=== PATIENT | female | born 1960 | race Caucasian/White ===

== ENCOUNTER → 2023-12-07 11:30 | Outpatient (REF) | payer BC, SELFPAY | LOC: RAD 11:30 | PROVIDERS: ATTENDING PHYSICIAN Internal Medicine Gastroenterology; FAMILY PHYSICIAN Physician Assistant Medical | DX: K76.0 Fatty (change of) liver, not elsewhere classified (principal) | CPT/HCPCS: 76700 ==

== ENCOUNTER → 2024-02-18 09:14 | Outpatient (REF) | payer MEDICARE, BC, SELFPAY | LOC: PAVMRI 09:14 | PROVIDERS: ATTENDING PHYSICIAN Internal Medicine Gastroenterology; FAMILY PHYSICIAN Physician Assistant Medical | DX: K82.4 Cholesterolosis of gallbladder (principal) | CPT/HCPCS: 74183; A9575 ==

== ENCOUNTER 2024-03-31 22:20 | Observation (INO) | payer MEDICARE, BC, SELFPAY ==
[2024-03-31 16:44] VITALS: BP 150/90
--- NOTE | 2024-03-31 17:28 | ED.GENMED ---
History of Present Illness
General
Chief Complaint: Abdominal Symptoms
Source: patient
Exam Limitations: none
Time Seen by Provider: 03/31/24 17:27
Nursing documentation reviewed up to this point in time: agreed with
History of Present Illness
History of Present Illness:
63-year-old female multiple episodes of nonbloody diarrhea with nausea some vomiting since 4 AM apparently soiled herself in the waiting room, did have a sick contact in care of her grandchild, so also at a concert recently around a lot of people
Has had some low-grade fevers, no recent antibiotic use, no foreign travel no raw or undercooked foods
Past History
Past History
ED Past Medical History: Arrthythmia
ED Past Surgical History: None
Social History
Tobacco: Non-smoker
Alcohol: None
Drug: None
Personal:
Living: with family
Employment: Employed
Review of Systems
Review of Systems
All Other Systems: Not applicable
Constitutional: Reports fever and fatigue
EENT: Reports no symptoms
Respiratory: Reports no symptoms
Cardiac: Reports no symptoms
ABD/GI: Reports nausea, vomiting and diarrhea; Denies abdominal pain, constipated, bloody stools, black stools or anorexia
: Reports no symptoms
Phy Exam
Physical Exam
Physical Exam:
Physical Exam
General: no apparent distress, not acutely ill
Neck: Dry lips
Heart: s1/s2 regular rate and rhythm, no murmur. equal radial pulses.
Lungs: no acute respiratory distress. clear bilaterally
Abdomen: Soft, nontender
Neuro: alert and oriented. no focal neurological deficits
Skin: no rash
Psychiatric: well kept. interactive and cooperative
Extremities: no edema.
Course
Orders/Labs/Results
Orders:
Orders
03/31/24 17:27
0.9% Sodium Chloride 1000 ml [Nss] 1,000 ml IV BOLUS
Ondansetron Injectable [Zofran] 4 mg IV NOW STA
03/31/24 17:34
Complete Blood Count/With Diff Urgent
Comprehensive Metabolic Panel Urgent
03/31/24 17:58
Norovirus by PCR Urgent
MATEUSZ Source: Feces/Stool
Specimen Description:
Date Specimen was Collected: 03/31/24
Time Specimen was Collected: 20:18
Stool Culture Urgent
MATEUSZ Source: Feces/Stool
Specimen Description:
Date Specimen was Collected: 03/31/24
Time Specimen was Collected: 20:18
Loperamide [Imodium] 2 mg PO NOW STA
03/31/24 20:16
0.9% Sodium Chloride 1000 ml [Nss] 1,000 ml IV BOLUS
Loperamide [Imodium] 2 mg PO NOW STA
Abnormal Lab Results
03/31/24
17:34
RBC 5.49 H 10^6/uL
(4.20-5.40)
Hct 47.6 H %
(37.0-47.0)
MCHC 31.9 L g/dL
(33.0-37.0)
Absolute Neuts (auto) 8.5 H 10^3/uL
(1.4-6.5)
Absolute Lymphs (auto) 0.5 L 10^3/uL
(1.2-3.4)
Neutrophils % 91.6 H %
(42.2-75.2)
Lymphocytes % 5.0 L %
(20.5-51.1)
Chloride 108 H mmol/L
(98-107)
Carbon Dioxide 21 L mmol/L
(22-30)
Glucose 126 H mg/dl
(70-99)
03/31/24 17:34
03/31/24 17:34
Vital Signs
Initial and Last Documented VS:
Initial Vital Signs
Temp Pulse Resp BP Pulse Ox
98.5 F 119 20 150/90 97
03/31/24 16:44 03/31/24 16:44 03/31/24 16:44 03/31/24 16:44 03/31/24 16:44
Last Documented Vital Signs
Temp Pulse Resp BP Pulse Ox
98.5 F 78 20 133/76 99
03/31/24 16:44 03/31/24 19:07 03/31/24 16:44 03/31/24 19:07 03/31/24 19:07
MDM/Problems Addressed
Differential Diagnosis Includes:
Norovirus infectious diarrhea colitis enteritis dehydration
MDM/Problems Addressed:
Diarrhea nausea vomit
*Pulse Oximetry
Patient hypoxic: no
*Gaming Cage Worker Interpretation
Rate: normal
Interpretation: normal
Heart Rate: 98
Rhythm: sinus
*Critical Care Note
Total Time (30-74mins, 75-104mins- exclusive of procedures): Not Applicable
Update Note
Update Note:
Update suspect viral enteritis afebrile here, normal white count no blood in her stool will start saline hydration antiemetics Imodium see if we get her feeling better
830 update patient continues to have copious malodorous diarrhea almost incontinence, at this point I would believe it is beneficial to admit her to the hospital
ED Attending Note
-
Portions of this chart may have been created with voice recognition software.� Occasional wrong word or��sound alike� substitutions may have occurred due to the inherent limitations of voice recognition software.
Discharge Plan
Departure
Patient Disposition: Home (Routine Discharge)
Date of Disposition: 03/31/24
Time of Disposition: 20:30
Admit to: Med/Surg
Patient with high blood pressure during this ER visit?: No
Condition: Fair
Covid-19: Not Applicable
Discharge Problem:
Intractable diarrhea
Prescriptions:
No Action
multivitamin with folic acid [Tab-A-Wilton] 1 TABLET tablet
1 tab PO DAILY
omega-3 fatty acids 100 MG tablet,chewable
684 - 1,200 mg PO DAILY
Lactobacillus acidophilus [Probiotic] 1 EACH capsule
1 cap PO DAILY
rivaroxaban [Xarelto] 20 MG tablet
20 mg PO QPM Qty: 90 1RF
apixaban [Eliquis] 5 MG tablet
5 mg PO BID Qty: 60 0RF
Referrals:
Joan James PA [Family Provider] -
Interventions
Interventions:
*Risk Screen - Suicide Last Done: 03/31/24 16:46
*General Assessment Last Done: 03/31/24 16:46
*Neglect/Abuse Screening Last Done: 03/31/24 16:46
ED- Fall Risk Assessment Last Done: 03/31/24 18:39
BR-Uxvvpy-Svszwkmdji Assessment Last Done: 03/31/24 18:39
Discharge Date and Time
Print Language: UKRAINIAN
[2024-03-31] MEDS: NSS 1000 IV ×2 (17:34→20:25)
[2024-03-31 17:45] LABS: % Basophils 0.1 % (0-2); % Eosinophils 0.2 % (0-6); % Immature Granulocytes 0.2 % (0-0.5); % Monocytes 2.9 % (1.7-9.3); % Neutrophils 91.6 % (42.2-75.2); Absolute Lymphocytes 0.5 10^3/uL (1.2-3.4); Absolute Monocytes 0.3 10^3/uL (0.1-0.6); Absolute Neutrophils 8.5 10^3/uL (1.4-6.5); Hematocrit 47.6 % (37.0-47.0); Hemoglobin 15.2 g/dL (12.0-16.0); Mean Corp Hgb Conc. 31.9 g/dL (33.0-37.0); Mean Corpuscular Hgb 27.7 pg (27.0-31.0); Mean Corpuscular Volume 86.7 fL (81.0-99.0); Mean Platelet Volume 9.6 fL (7.4-10.4); Nucleated Red Blood Cells % 0 %; Platelet Count 202 10^3/uL (130-400); Red Blood Cell Count 5.49 10^6/uL (4.20-5.40); Red Cell Dist. Width 12.4 % (11.5-14.5); White Blood Cell Count 9.3 10^3/uL (4.8-10.8)
[2024-03-31] MEDS: ZOFRAN 4 MG IV (17:50)
[2024-03-31 18:06] LABS: ALT (SGPT) 28 U/L (0-35); AST (SGOT) 25 U/L (14-36); Albumin 4.2 g/dl (3.5-5.0); Alkaline Phosphatase 69 U/L (38-126); Blood Urea Nitrogen 16 mg/dl (7-17); Calcium 8.9 mg/dl (8.4-10.2); Carbon Dioxide 21 mmol/L (22-30); Chloride 108 mmol/L (98-107); Glucose 126 mg/dl (70-99); Sodium 136 mmol/L (135-145); Total Bilirubin 0.9 mg/dl (0.2-1.3); Total Protein 6.9 g/dl (6.3-8.2); eGFR > 60.00
[2024-03-31 18:12] LABS: Potassium 3.8 mmol/L (3.5-5.1)
[2024-03-31] MEDS: IMODIUM 2 MG PO ×2 (18:14→20:25)
[2024-03-31 19:07] VITALS: BP 133/76
--- NOTE | 2024-03-31 21:23 | HPS.HSE ---
Family Physician
-
Family Physician: Joan James
Chief Complaint
-
diarrheal illness
History of Present Illness
This is a 66-year-old female with history of paroxysmal atrial fibrillation on as needed rate control with propafenone and diltiazem who presents to the emergency department with approximately 1 day history of a diarrheal illness.
Patient reported contacts with 2 family members with diarrhea who appears to have improved in the last 2 to 3 days. However she stated that she started having loose stools yesterday morning at around 4 AM. She then developed very watery diarrhea
throughout the day today. Yesterday she had an episode of atrial fibrillation for which she terminated it with a dose of diltiazem and propafenone. She is a direct was 135 at that time. She reports a low-grade temp. She denies any nausea or
vomiting. She denies feeling dizzy or lightheaded. She has not been able to tolerate any p.o. at home due to continued diarrheal bowel movements. Patient denies any bloody stools.
In the emergency department she was afebrile, blood pressure was 133/76 with a pulse of 70. CBC was unremarkable. Electrolytes BUN/creatinine have been normal. Stool studies are pending
Medical History
Past Medical History
Past Medical History: Reports Arrhythmia (Proximal atrial fibrillation)
Past Surgical History: Reports None
Social History
Tobacco: Non-smoker
Alcohol: None
Drug: None
Personal:
Living: With Family
Employment: Employed
Family History
Family History: Not pertinent
Allergies / Home Medications
Allergies reflects when Allergies were last updated in [employer].
Home Medications with original date entered in [employer]
Allergy/Medication List:
Allergies
Allergy/AdvReac Type Severity Reaction Status Date / Time
No Known Allergies Allergy Verified 07/31/21 09:09
Home Medications
Lactobac no.2-Bifidobac no.1-S. thermo 112.5 billion cell capsule ([employer]inel[employer]) 1 cap PO DAILY 03/31/24
diltiazem HCl 120 mg capsule,24 hr,extended release 120 mg PO DAILYPRN PRN afib 03/31/24
esomeprazole magnesium 40 mg capsule,delayed release (Nexium) 40 mg PO DAILYPRN PRN reflux 03/31/24
omega-3 fatty acids-fish oil 684 mg-1,200 mg capsule,delayed release 1 cap PO DAILY 03/31/24
propafenone 150 mg tablet 150 mg PO DAILYPRN PRN afib, diltiazem ineffective 03/31/24
therapeutic multivitamin 1 tab PO DAILY 03/31/24
Review of Systems
-
History Source: Patient
Constitutional: Reports No Symptoms
EENT: Reports No Symptoms
Respiratory: Reports No Symptoms
Cardiac: Reports No Symptoms
Abdomen/GI: Reports Diarrhea
: Reports No Symptoms
Musculoskeletal: Reports No Symptoms
Skin: Reports No Symptoms
Neurological: Reports No Symptoms
Endocrine: Reports No Symptoms
Hematologic/Lymphatic: Reports No Symptoms
Psych: Reports No Symptoms
Physical Exam
Vital Signs
Vital Signs
Temp Pulse Resp BP Pulse Ox
98.5 F 78 20 133/76 99
03/31/24 16:44 03/31/24 19:07 03/31/24 16:44 03/31/24 19:07 03/31/24 19:07
Physical Exam
General: Well Developed and Well Nourished
HEENT: NormoCephalic, Anicteric, Moist mucous membranes and Atraumatic
Respiratory: Clear
Cardiac: S1/S2 and Regular Rhythm
Breast: Deferred by me
GI: Soft, Non Tender, Non Distended and Normal Bowel Sounds
Genito-urinary: Deferred by me
Musculoskeletal: No Clubbing, No Cyanosis and No Edema
Neuro: AO x 3
Hematologic/Lymphatic: No Lymphadenopathy
Psych: Calm
Laboratory Results
-
03/31/24 17:34
03/31/24 17:34
Laboratory Results
Total Bilirubin 0.9 mg/dl (0.2-1.3) 03/31/24 17:34
AST 25 U/L (14-36) 03/31/24 17:34
ALT 28 U/L (0-35) 03/31/24 17:34
Alkaline Phosphatase 69 U/L (38-126) 03/31/24 17:34
Data Reviewed
-
Lab Data: Labs Reviewed by me
Old Records: Reviewed
Impression/Plan
-
IMPRESSION:
63 y.o female with paroxysmal atrial fibrillation status post ablation and on as needed rate control presents with watery diarrhea for about 24 hours. She is generally well appearing with stable labs but unable to tolerate po or cope at home.
Suspect diarrhea secondary to viral enteritis.
PLAN:
1. Acute enteritis - well appearing and hemodynamically stable, at risk for triggering afib w/ dehydration.
- admit to obs, telemetry
- stool studies pending
- IV LR at 125 ml/hr for now
- immodium prn
- antiemetics and pain control
2. pAFIB - Patient on a prn protocol
- she takes diltiazem 60mg prn afib
- if not controlled she takes propafenone 450 mg prn
- if afib > 24 hours, she starts Xarelto
DVT PPX - lovenox sq
Code status - full code
[2024-04-01] MEDS: LR 1000 IV (01:06)
[2024-04-01 01:14] VITALS: BP 128/58
[2024-04-01 02:00] VITALS: BP 110/59
[2024-04-01 02:35] VITALS: BMI 35.5
[2024-04-01 04:00] VITALS: BP 109/72
[2024-04-01 06:03] LABS: Blood Urea Nitrogen 13 mg/dl (7-17); Calcium 8.1 mg/dl (8.4-10.2); Carbon Dioxide 23 mmol/L (22-30); Chloride 109 mmol/L (98-107); Estimated Creatinine Clearance 123 ml/min; Glucose 103 mg/dl (70-99); Magnesium 1.6 mg/dl (1.6-2.3); Potassium 3.8 mmol/L (3.5-5.1); Sodium 138 mmol/L (135-145); eGFR > 60.00
[2024-04-01 07:52] VITALS: BP 115/64
[2024-04-01 08:00] VITALS: BP 104/62
--- NOTE | 2024-04-01 08:42 | W.PN.HOSP.TC ---
Today's Communication/Plan
-
d/c
Assessment / Plan
Assessment / Plan
Gen: NAD, AAOx3.
Eyes: EOMI, PERRLA, no scleral icterus.
Neck: supple.
CV: RRR, +S1/S2, no m/r/g.
Resp: CTAB, no rales, wheezes, or rhonchi.
Abd: +BS, soft, NT, ND
Skin: No rashes.
Neuro: CN 2-12 intact, non-focal.
Psych: Normal mood and affect.
Acute enteritis:
-well appearing and hemodynamically stable
-currently in SR
-no diarrhea since admission
-has been on IVFs
-advance diet as tolerated
-medically cleared for d/c
PAF:
-on diltiazem 60mg PRN
-if not controlled she takes propafenone 450mg PRN
-if afib > 24 hours, she starts Xarelto
Obesity due to excess calories
FULL/Lovenox
Total time spent on d/c = 31 min. This included today's physical exam, progress note, review of laboratory and diagnostic data, preparation of discharge documents and prescriptions, and discussions about the pt's hospital course and discharge plan
with the patient and other medical technician involved in the patient's care.
Anticipated Discharge: Today
Subjective/Interval History
-
Date of Service: April 01, 2024
No diarrhea since admission as per pt. States she is 'staring.'
Objective Data
-
Labs:
Laboratory Results
04/01/24
05:08
Sodium 138
Potassium 3.8
Chloride 109 H
Carbon Dioxide 23
BUN 13
Creatinine 0.6
Glucose 103 H
Calcium 8.1 L
Vital Signs:
Vital Signs
Temp Pulse Resp BP Pulse Ox
98.5 F 70 23 110/59 92
03/31/24 16:44 04/01/24 02:30 04/01/24 02:30 04/01/24 02:00 04/01/24 02:30
I&O
03/31/24 04/01/24 04/02/24
06:59 06:59 06:59
Intake Total 1500 / 1500
Balance 1500 / 1500
--- NOTE | 2024-04-01 09:43 | CM ---
CM reviewed medical records. Patient medically ready for discharge to home. No needs noted.
PLAN: home no needs.
[2024-04-01 10:00] VITALS: BP 121/70
== END 2024-04-01 10:45 | disposition home or self-care (01) ==
LOC: ED 22:20
PROVIDERS: ADMITTING PHYSICIAN Internal Medicine; ATTENDING PHYSICIAN Internal Medicine; EMERGENCY PHYSICIAN Emergency Medicine; FAMILY PHYSICIAN Physician Assistant Medical
DX: A08.11 Acute gastroenteropathy due to Norwalk agent (principal); R10.9 Unspecified abdominal pain; R50.9 Fever, unspecified; R53.83 Other fatigue; R19.7 Diarrhea, unspecified; R11.2 Nausea with vomiting, unspecified; I48.0 Paroxysmal atrial fibrillation; E86.0 Dehydration; E66.09 Other obesity due to excess calories; Z68.35 Body mass index [BMI] 35.0-35.9, adult
CPT/HCPCS: 80048; 80053; 83735; 85025; 87045; 87046; 87077; 87427; 87798; 96361; 96374; 99284; G0378

== ENCOUNTER → 2024-04-10 10:06 | Outpatient (REF) | payer MEDICARE, BC, SELFPAY | LOC: RAD 10:06 | PROVIDERS: ATTENDING PHYSICIAN Obstetrics & Gynecology Gynecology; FAMILY PHYSICIAN Physician Assistant Medical | DX: Z78.0 Asymptomatic menopausal state (principal) | CPT/HCPCS: 77080 ==

== ENCOUNTER → 2024-04-12 10:02 | Outpatient (REF) | payer MEDICARE, BC, SELFPAY | LOC: WDC 10:02 | PROVIDERS: ATTENDING PHYSICIAN Obstetrics & Gynecology Gynecology; FAMILY PHYSICIAN Physician Assistant Medical | DX: Z12.31 Encounter for screening mammogram for malignant neoplasm of breast (principal) | CPT/HCPCS: 77063; 77067 ==

== ENCOUNTER 2024-09-20 09:00 | Emergency (ER) | payer MEDICARE, BC, SELFPAY ==
[2024-09-20] VITALS (18 sets, daily range): BP systolic 114–146; BP diastolic 73–109; BMI 33.9
--- NOTE | 2024-09-20 09:49 | ED.GENMED ---
History of Present Illness
<Thad Scott PA-C - Last Filed: 09/20/24 13:56>
General
Chief Complaint: Heart Rate Problem
Time Seen by Provider: 09/20/24 09:12
History of Present Illness
History of Present Illness:
63-year-old female presents emergency department due to heart palpitations and known A-fib. Long history of A-fib has undergone ablation in the past. States she went into A-fib yesterday in the morning and took a dose of propafenone when she
typically uses 2 abort her A-fib. This did not provide any relief and she remains in A-fib as of this morning. Contacted her conditioning room worker who advised her to come to the ED for cardioversion. She has been n.p.o. this morning but did not take her
Eliquis. No chest pain or shortness of breath at this time
Past History
<Thad Scott PA-C - Last Filed: 09/20/24 13:56>
Past History
ED Past Medical History: Arrthythmia
ED Past Surgical History: None
Social History
Tobacco: Non-smoker
Alcohol: None
Drug: None
Personal:
Living: with family
Employment: Employed
Review of Systems
<Thad Scott PA-C - Last Filed: 09/20/24 13:56>
Review of Systems
Allergies reviewed?: Yes
All Other Systems: ROS reviewed and negative except as documented in HPI and ROS
Phy Exam
<Thad Scott PA-C - Last Filed: 09/20/24 13:56>
Physical Exam
Physical Exam:
GEN: Well appearing, NAD, WDWN
HEENT: Oral mucosa moist, no scleral icterus
Cardiac: Controlled rate, irregular
Lung: No respiratory distress, no tachypnea
MSK: No gross deformity or injuries
Skin: Good color, no pallor or jaundice, no rashes
Neuro: AO x3, moves all extremities freely
Psych: Calm, cooperative
Course
<Thad Scott PA-C - Last Filed: 09/20/24 13:56>
Orders/Labs/Results
Orders:
Orders
09/20/24
Electrocardiogram (*1) Stat
Comment: DONE
09/20/24 09:01
EKG [Electrocardiogram (*1)] Urgent
Reason for Study: Atrial Fibrillation
09/20/24 09:02
EKG- Treatment ONCE
09/20/24 10:08
Basic Metabolic Panel Urgent
Complete Blood Count/No Diff Urgent
Magnesium Urgent
09/20/24 10:14
Propofol [Diprivan] 20 ml .ROUTE .STK-MED
09/20/24 10:23
Propofol [Diprivan] 40 mg IV NOW STA
Abnormal Lab Results
09/20/24
10:08
Chloride 115 H mmol/L
(98-107)
Carbon Dioxide 19 L mmol/L
(22-30)
Glucose 103 H mg/dl
(70-99)
09/20/24 10:08
09/20/24 10:08
Vital Signs
Initial and Last Documented VS:
Initial Vital Signs
Temp Pulse Resp BP Pulse Ox
97.7 F 99 20 133/90 98
09/20/24 09:06 09/20/24 09:06 09/20/24 09:06 09/20/24 09:06 09/20/24 09:06
Last Documented Vital Signs
Temp Pulse Resp BP Pulse Ox
98 F 61 16 123/74 100
09/20/24 11:45 09/20/24 11:45 09/20/24 11:45 09/20/24 11:45 09/20/24 11:45
<Janes Prakash DO - Last Filed: 09/20/24 10:38>
Orders/Labs/Results
Orders:
Orders
09/20/24
Electrocardiogram (*1) Stat
Comment: DONE
09/20/24 09:01
EKG [Electrocardiogram (*1)] Urgent
Reason for Study: Atrial Fibrillation
09/20/24 09:02
EKG- Treatment ONCE
09/20/24 10:08
Basic Metabolic Panel Urgent
Complete Blood Count/No Diff Urgent
Magnesium Urgent
09/20/24 10:14
Propofol [Diprivan] 20 ml .ROUTE .STK-MED
09/20/24 10:23
Propofol [Diprivan] 40 mg IV NOW STA
Abnormal Lab Results
09/20/24
10:08
Chloride 115 H mmol/L
(98-107)
Carbon Dioxide 19 L mmol/L
(22-30)
Glucose 103 H mg/dl
(70-99)
09/20/24 10:08
09/20/24 10:08
Vital Signs
Initial and Last Documented VS:
Initial Vital Signs
Temp Pulse Resp BP Pulse Ox
97.7 F 99 20 133/90 98
09/20/24 09:06 09/20/24 09:06 09/20/24 09:06 09/20/24 09:06 09/20/24 09:06
Last Documented Vital Signs
Temp Pulse Resp BP Pulse Ox
98 F 61 16 123/74 100
09/20/24 11:45 09/20/24 11:45 09/20/24 11:45 09/20/24 11:45 09/20/24 11:45
Procedures
<Janes Prakash DO - Last Filed: 09/20/24 10:38>
Cardioversion
Indication:: Afib
Performed by:: Me, Dr. Prakash and HESHAM Patel
Synchronized?: Yes
Energy Used: 150 joules
Number of attempts: 1
Successful?: Yes
Complications: None
ASA Risk Score: Class II
Any reaction or bad outcome to prior sedation/anesthesia?: No history of a reaction
Sedation level to be attained: moderate
Chart and allergies reviewed: Yes
Patient reassessed prior to sedation: Yes
Time out completed at (validating right patient & procedure): 10:29
History of difficult intubation: No
Airway free of obstruction: Yes
Patient has a gag reflex: Yes
Patient is able to open mouth: Yes
Patient has no dentures: Yes
Patient has no loose teeth: Yes
Medication administered by Provider during Moderate Sedation: IV Propofol (mg) (60)
Total dose administered: 60
Time drug administered: 10:29
Start Time: 10:29
Stop Time: 10:40
<Thad Scott PA-C - Last Filed: 09/20/24 13:56>
MDM/Problems Addressed
MDM/Problems Addressed:
Patient arrives in controlled rate A-fib despite propafenone use yesterday. She was directed by her conditioning room worker to come for cardioversion. She is mildly symptomatic with heart palpitations. She is a reasonable cardioversion candidate on the
basis of chronic anticoagulation underwent electrical cardioversion with 1 attempt at 150 J without complications. Recovered well and remained in normal sinus rhythm thereafter. Discharged in stable condition. Recommend cardiology follow-up to
discuss medication adjustments
<Thad Scott PA-C - Last Filed: 09/20/24 13:56>
Comment
Comment:
EKG independently interpreted by me shows a controlled rate atrial fibrillation with no ischemic ST changes
*Pulse Oximetry
Patient hypoxic: no
Comment: 98%
*Critical Care Note
Total Time (30-74mins, 75-104mins- exclusive of procedures): Not Applicable
ED Attending Note
<Thad Scott PA-C - Last Filed: 09/20/24 13:56>
-
Portions of this chart may have been created with voice recognition software.� Occasional wrong word or��sound alike� substitutions may have occurred due to the inherent limitations of voice recognition software.
<Janes Prakash DO - Last Filed: 09/20/24 10:38>
ED Attending Note
Patient seen and examined by attending physician: Yes
I performed the substantive portion of visit, reviewed & personally made and approve the management plan that is documented in note by myself or MARGE.: Yes
ED Attending Note:
I evaluated the patient at bedside. She did take propafenone which did not convert back to sinus rhythm. She was sent here by [facility], Dr. Shahid for electrical cardioversion. This was performed in 1 attempt without any difficulty with a total of 60
mg of propofol. She has been compliant with her Eliquis over the last 2 weeks.
Discharge Plan
Departure
Patient Disposition: Home (Routine Discharge)
Date of Disposition: 09/20/24
Time of Disposition: 11:18
Patient with high blood pressure during this ER visit?: No
Discharge Problem:
PAF (paroxysmal atrial fibrillation)
Instructions: Atrial Fibrillation (DC)
Prescriptions:
No Action
propafenone 150 mg Tablet
150 mg PO DAILYPRN PRN (Reason: afib, diltiazem ineffective)
therapeutic multivitamin Tablet
1 tab PO DAILY
diltiazem HCl 120 mg Capsule,Extended Release 24hr
120 mg PO DAILYPRN PRN (Reason: afib)
Visbiome 112.5 billion cell Capsule
1 cap PO DAILY
Eliquis 5 mg Tablet
5 mg PO BID
Referrals:
Hermes Georges MD [Family Provider, Cardiology]
Activity Restrictions/Additional Instructions:
Contact your conditioning room worker regarding any need for medication adjustments
Interventions
Interventions:
*Risk Screen - Suicide Last Done: 09/20/24 09:06
*General Assessment Last Done: 09/20/24 09:06
*Neglect/Abuse Screening Last Done: 09/20/24 09:06
*ED- Fall Risk Assessment Last Done: 09/20/24 09:23
*Nursing Disposition Last Done: 09/20/24 11:45
ED- Cardiac Assessment Last Done: 09/20/24 09:23
ED- Pulmonary Assessment Last Done: 09/20/24 09:23
Discharge Date and Time
Discharge Date/Time: 09/20/24 11:45
Print Language: AMHARIC
[2024-09-20 10:23] LABS: Hematocrit 41.4 % (37.0-47.0); Hemoglobin 14.5 g/dL (12.0-16.0); Mean Corpuscular Hgb 28.6 pg (27.0-31.0); Mean Corpuscular Volume 81.7 fL (81.0-99.0); Mean Platelet Volume 10.3 fL (7.4-10.4); Platelet Count 192 10^3/uL (130-400); Red Blood Cell Count 5.07 10^6/uL (4.20-5.40); Red Cell Dist. Width 12.8 % (11.5-14.5); White Blood Cell Count 5.7 10^3/uL (4.8-10.8)
[2024-09-20] MEDS: DIPRIVAN 40 MG IV (10:24)
[2024-09-20 10:31] LABS: Blood Urea Nitrogen 14 mg/dl (7-17); Calcium 9.5 mg/dl (8.4-10.2); Carbon Dioxide 19 mmol/L (22-30); Chloride 115 mmol/L (98-107); Estimated Creatinine Clearance 116 ml/min; Glucose 103 mg/dl (70-99); Potassium 4.4 mmol/L (3.5-5.1); Sodium 143 mmol/L (135-145); eGFR > 60.00
== END 2024-09-20 11:45 | disposition home or self-care (01) ==
LOC: EMR 09:00
PROVIDERS: Physician Assistant; EMERGENCY PHYSICIAN Emergency Medicine; FAMILY PHYSICIAN Internal Medicine Cardiovascular Disease
DX: I48.0 Paroxysmal atrial fibrillation (principal); Z79.01 Long term (current) use of anticoagulants
CPT/HCPCS: 92960; 99152; 99285; 80048; 83735; 85027; 93005

== ENCOUNTER → 2024-09-22 13:05 | Outpatient (REF) | payer MEDICARE, BC, SELFPAY ==
[2024-09-22 13:50] LABS: % Basophils 0.5 % (0-2); % Eosinophils 1.6 % (0-6); % Immature Granulocytes 0.2 % (0-0.5); % Lymphocytes 25.6 % (20.5-51.1); % Monocytes 9.7 % (1.7-9.3); % Neutrophils 62.4 % (42.2-75.2); Absolute Eosinophils 0.1 10^3/uL (0-0.7); Absolute Lymphocytes 1.6 10^3/uL (1.2-3.4); Absolute Monocytes 0.6 10^3/uL (0.1-0.6); Hematocrit 38.9 % (37.0-47.0); Hemoglobin 12.9 g/dL (12.0-16.0); Mean Corp Hgb Conc. 33.2 g/dL (33.0-37.0); Mean Corpuscular Volume 84.6 fL (81.0-99.0); Mean Platelet Volume 10.9 fL (7.4-10.4); Nucleated Red Blood Cells % 0 %; Platelet Count 201 10^3/uL (130-400); Red Cell Dist. Width 12.7 % (11.5-14.5); White Blood Cell Count 6.4 10^3/uL (4.8-10.8)
[2024-09-22 14:03] LABS: PT 14.5 Sec (11.4-14.6)
[2024-09-22 15:14] LABS: ALT (SGPT) 22 U/L (0-35); AST (SGOT) 22 U/L (14-36); Albumin 4.1 g/dl (3.5-5.0); Alkaline Phosphatase 67 U/L (38-126); Blood Urea Nitrogen 13 mg/dl (7-17); Calcium 9.2 mg/dl (8.4-10.2); Carbon Dioxide 27 mmol/L (22-30); Chloride 109 mmol/L (98-107); Glucose 88 mg/dl (70-99); Magnesium 1.7 mg/dl (1.6-2.3); Sodium 141 mmol/L (135-145); Total Bilirubin 0.8 mg/dl (0.2-1.3); Total Protein 6.7 g/dl (6.3-8.2); eGFR > 60.00
== END ==
LOC: SDSPAT 13:05
PROVIDERS: ATTENDING PHYSICIAN Internal Medicine Cardiovascular Disease; FAMILY PHYSICIAN Physician Assistant Medical
DX: I48.0 Paroxysmal atrial fibrillation (principal)
CPT/HCPCS: 36415; 80053; 83735; 85025; 85610; 86850; 86900; 86901; 93005

== ENCOUNTER 2024-10-06 06:05 | Day surgery (SDC) | payer MEDICARE, BC, SELFPAY ==
[2024-09-22 13:26] VITALS: BMI 35.3
[2024-10-06] VITALS (13 sets, daily range): BP systolic 113–146; BP diastolic 70–82
[2024-10-06] MEDS: NSS 500 IV (06:56)
--- NOTE | 2024-10-06 07:35 | ITS.CL.ABL ---
Lamp Replacer - Ablation
Ablation
Procedure Report:
ELECTROPHYSIOLOGIC STUDY AND POSSIBLE ABLATION
DATE: October 06, 2024
Primary Care Provider: CATLHEEN REGALADO
INDICATION:
Symptomatic Atrial Fibrillation.
Paroxysmal
HISTORY: See H and P.
Symptomatic AF, poorly controlled with attempted medical therapy.
She has paroxysmal atrial fibrillation, peripheral venous insufficiency and moderate sleep apnea (on CPAP).
She had AF ablation in 2009 and redo PVI Ablation on 01/28/2018.
CHADSVASc now 2�(for Age and gender). On apixaban 5 mg twice daily for atrial fibrillation related thromboembolic risk reduction.
She is experienced increasing symptomatic burden of atrial fibrillation which has been increasingly resistant to antiarrhythmic drug therapy, propafenone.
HAS-BLED:
Age
CHADSVASc:
Age
F Gender
PRESENTING RHYTHM: SR
HISTORY: See H and P.
Symptomatic AF, poorly controlled with attempted medical therapy.
ANTIARRHYTHMIC DRUG: Propafenone
ANTICOAGULATION: Apixaban 5 mg twice daily
'TIME-OUT': called and confirmed.
SEDATION/ANESTHESIA: provided via the anesthesia department using general anesthesia.
PROCEDURE:
Ultrasound Guidance with real-time visualization of needle insertion and vessel patency performed by hi for femoral venous Vascular Access.
Under real-time US guidance, the needle was advanced with negative pressure into the vein. The needle was seen entering the vessel lumen with a good return of dark red flow, the syringe was removed, non-pulsatile, dark red blood low was noted and
the wire was passed without difficulty, then the needle was removed. US confirmed the wire was in the vein, not going into an artery,
Images were taken and saved for the patient's permanent record. Imaging findings typical femoral venous anatomy. Direct visualization of needle puncture into the femoral vein was observed and recorded.
A decapolar CS catheter was placed within the CS for mapping and pacing.
The intracardiac ultrasound catheter was positioned in the RA for continuous intracardiac ultrasound imaging.
Heparin bolus and infusion to target ACT at 300 -350 seconds was administered. Transseptal puncture was performed. This entailed advancing a sheath with dilator into the superior vena cava and withdrawing both (monitoring intracardiac ultrasound,
fluoroscopy and tip pressure) with the tip oriented toward the atrial septum. The fossa ovalis was engaged (indicated by sudden displacement of the sheath tip as well as tenting of the fossa seen on intracardiac ultrasound).
The [email or web address] transseptal system was used. Left atrial catheter position was confirmed by echocardiographic imaging and fluoroscopy followed by RF delivery using the [employer] system resulting in successful LA access with pressure monitoring
demonstrating LA pressure waveforms (LA mean pressure 11 mm Hg). The sheath was advanced over the dilator and positioned in the left atrium.
The [employer] multipolar mapping catheter was initially positioned through the transseptal sheath for high density mapping.
Geometry and voltage mapping was performed using the [employer] multipolar grid catheter. Ensite-X was utilized for three-dimensional electroanatomical mapping.
A 3-D map was created using [employer] in Voxel mode. A 3-D reconstructed CT image was compared to the 3-D [employer] map to assist in anatomic evaluation, mapping and ablation.
The [email or web address] PFA catheter and system was used for cardiac ablation. Catheter positioning was guided and confirmed using both I.C.E. and fluoroscopy.
Ablation strategy included PVI as well as mapping for extra PV contributors to atrial fibrillation which would also be targeted if present.
High density electroanatomical three-dimensional mapping demonstrated Common left PV, RSPV, RIPV. This demonstrates isolation of the Right PVS. There is reconnection at the inferior quadrant of the common Left PV.
After accomplishing pulmonary venous isolation, mapping identified additional areas likely to be extra PV contributors to atrial fibrillation. These areas demonstrated patchy low voltage as well as complex fractionated electrograms. These areas can
be sites for the formation of rotors which can drive and maintain atrial fibrillation. These areas are known to be significant contributors to initiation and perpetuation of atrial fibrillation.
Additional energy applications/additional ablation sets targeted extra PV contributors to atrial fibrillation.
Targets for additional PFA ablation included:
LA posterior wall targeted with pulsed electric field energy isolating the posterior wall of the left atrium
After ablation of the posterior wall, targets remained at:
LA inferior floor
Anterior LA roof
These areas were ablated using pulsed electric field energy eliminating the extra PV contributors to atrial fibrillation at the LA posterior wall, the LA inferior floor line and the LA anterior roof line.
Post ablation mapping finds electrical block at each of the pulmonary veins (Left Common PV, RSPV, RIPV), the LA posterior wall and at the additional lines at the anterior roof of the LA as well as the inferior/floor of the LA rendering the sites no
longer able to contribute to atrial fibrillation.
Programmed electrostimulation including burst atrial pacing as well the delivery of decremental extrastimuli down to atrial effective refractory period and no sustained arrhythmias could be induced.
I.C.E. :
Pre-Ablation Post-Ablation
LVEF: 55 % 55 %
WMA: None None
Pericardial effusion: None None
COMPLICATIONS:
None
SUMMARY:
- Mapping and ablation to isolate the PVs
- Additional AF ablation set after PVI.
LA posterior wall
LA anterior roof line
LA Inferior/floor line
- 3-D Electroanatomical Mapping
- Intracardiac Ultrasound
- Ultrasound guidance for vascular access
Post ablation, I discussed today's findings and results with the patient's , Walt.
RECOMMENDATIONS:
- Observe in monitored bed.
- Maintain oral anticoagulation.
- Continue propafenone and Cardizem as pill in pocket as needed
- Office visit with Mary Alice WELSH is scheduled for January 06, 2025
Copy to: NICKOLAS SPENCE, PAC
[2024-10-06 08:56] LABS: ACT-LR - POC 382 Seconds (116-155)
[2024-10-06] MEDS: TYLENOL 650 MG PO (10:03)
--- NOTE | 2024-10-06 13:24 | W.PN.UPDATE ---
Update Note
Progress Note Update
Pt seen post PFA. Right groin site without ht/bleeding, oob ambulating, urinating without difficulty. Post EKG NSR 60, no acute changes. Resume eliquis tonight at usual time. Will continue pill in pocket management with diltiazem, propafenone for
recurrent PAF as needed. Followup at [facility] as scheduled. Home today if groin site/tele remain stable.
[2024-10-06 14:36] LABS: ACT-LR - POC > 397 Seconds (116-155)
== END 2024-10-06 14:00 | disposition home or self-care (01) ==
LOC: CATH 06:05
PROVIDERS: ATTENDING PHYSICIAN Internal Medicine Cardiovascular Disease; FAMILY PHYSICIAN Physician Assistant Medical
DX: I48.0 Paroxysmal atrial fibrillation (principal); G47.33 Obstructive sleep apnea (adult) (pediatric); I87.2 Venous insufficiency (chronic) (peripheral); K58.9 Irritable bowel syndrome, unspecified; E66.9 Obesity, unspecified; Z68.35 Body mass index [BMI] 35.0-35.9, adult; K76.0 Fatty (change of) liver, not elsewhere classified; R73.03 Prediabetes; Z79.01 Long term (current) use of anticoagulants
CPT/HCPCS: C1732; C1894 ×2; C1730; C1769; C1892; 85347; 93005; 93656; 93657; C1766